=== PATIENT | female | born 1940 | race Caucasian/White ===

== ENCOUNTER → 2018-06-23 | Outpatient (CLI) | payer OTHER ==
[~2018-06-23] VITALS: Ht 160 cm; Wt 60.3 kg
[~2018-06-23] MED LIST: ACETAMINOPHEN-1 EAC1 PO; ADVAIR 250-501 EACH INH; AMLODIPINE BESYL5 MG PO; BYSTOLIC10 MG PO; CALCIUM ACETAT667 M2 PO; GABAPENTIN 100100 MG PO; HYDROCHLOROTHIA25 M2 PO; IRBESARTAN300 MG PO; LISINOPRIL10 MG PO; LIVALO4 MG PO; MEDROLDOSEPACK PO; MULTIVITAMINS1 EAC7 PO; PRAVASTATIN SOD20 MG PO; PROAIR HFA8.5 GM INH; SINGULAIR 10 MG10 M1 PO
[2018-06-23 12:44] VITALS: BP 181/78
--- NOTE | 2018-06-23 12:45 | NUR ---
Pain Clinic Assessment: 1. History of Osteoarthritis: SPINE History of Rheumatoid Arthritis: Not Applicable 2. Height: 5 ft. 3 in. 160.0 cm. Weight: 133.0 lb. oz. 60.328 kg. Patient's BMI: 23.6 3. Vital Signs: BP: 181/78 Pulse: 98 Resp: 18 Temp: 02 Sat: 93 ECG Mon: 4. Pain Intensity: 6-7 5. Fall Risk: Dizziness: Needs help standing or walking: Fallen in the last 3 months: Fall risk comments: 6. Patient on Blood Thinner: None 7. History of Hypertension: Y 8. Opioid Therapy greater than 6 weeks: N Opiate Contract Signed: 9. Risk Assessment Tool Provided: 10. Functional Assessment Tool: 11. Recreational Drug Use: Never Drug Type: Tobacco Use: Former Smoker Tobacco Type: Amount or Packs/day: How Many Years: Alcohol Use: Yes Frequency: Weekly Quant: 2
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
== END ==
LOC: PAIN 08:57
DX: M54.16 Radiculopathy, lumbar region (principal); I10 Essential (primary) hypertension; J45.909 Unspecified asthma, uncomplicated; C50.919 Malignant neoplasm of unspecified site of unspecified female breast; Z79.899 Other long term (current) drug therapy

== ENCOUNTER → 2018-12-09 | Outpatient (CLI) | payer OTHER | LOC: RAD 15:33 | DX: R07.9 Chest pain, unspecified (principal) ==

== ENCOUNTER → 2019-02-18 | Outpatient (CLI) | payer OTHER ==
[~2019-02-18] VITALS: Ht 160 cm; Wt 59.1 kg
[~2019-02-18] MED LIST changes: +LOPERAMIDE 2 MG2 M1 PO; +ZYRTEC10 M5 PO
[2019-02-18 14:07] VITALS: BP 138/64
--- NOTE | 2019-02-18 14:17 | NUR ---
Pain Clinic Assessment: 1. History of Osteoarthritis: SPINE History of Rheumatoid Arthritis: Not Applicable 2. Height: 5 ft. 3 in. 160.0 cm. Weight: 130.4 lb. oz. 59.149 kg. Patient's BMI: 23.1 3. Vital Signs: BP: 138/64 Pulse: 90 Resp: 18 Temp: 02 Sat: 92 ECG Mon: 4. Pain Intensity: 6 5. Fall Risk: Dizziness: N Needs help standing or walking: N Fallen in the last 3 months: Y Fall risk comments: 6. Patient on Blood Thinner: None 7. History of Hypertension: Y 8. Opioid Therapy greater than 6 weeks: N Opiate Contract Signed: 9. Risk Assessment Tool Provided: 10. Functional Assessment Tool: 11. Recreational Drug Use: Never Drug Type: Tobacco Use: Former Smoker Tobacco Type: Amount or Packs/day: How Many Years: Alcohol Use: Yes Frequency: Weekly Quant: 1
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
== END ==
LOC: PAIN 13:34
DX: M47.16 Other spondylosis with myelopathy, lumbar region (principal); I10 Essential (primary) hypertension; J45.909 Unspecified asthma, uncomplicated; Z79.899 Other long term (current) drug therapy; Z88.8 Allergy status to other drugs, medicaments and biological substances; Z85.3 Personal history of malignant neoplasm of breast

== ENCOUNTER → 2019-03-11 | Outpatient (CLI) | payer OTHER ==
[~2019-03-11] VITALS: Ht 160 cm; Wt 58.7 kg
[2019-03-11 08:41] VITALS: BP 131/62
--- NOTE | 2019-03-11 08:55 | NUR ---
Pain Clinic Assessment: 1. History of Osteoarthritis: SPINE History of Rheumatoid Arthritis: Not Applicable 2. Height: 5 ft. 3 in. 160.0 cm. Weight: 129.4 lb. oz. 58.695 kg. Patient's BMI: 22.9 3. Vital Signs: BP: 131/62 Pulse: 86 Resp: 14 Temp: 02 Sat: 97 ECG Mon: 4. Pain Intensity: 6 5. Fall Risk: Dizziness: N Needs help standing or walking: N Fallen in the last 3 months: N Fall risk comments: 6. Patient on Blood Thinner: None 7. History of Hypertension: Y 8. Opioid Therapy greater than 6 weeks: N Opiate Contract Signed: 9. Risk Assessment Tool Provided: 10. Functional Assessment Tool: 11. Recreational Drug Use: Never Drug Type: Tobacco Use: Former Smoker Tobacco Type: Amount or Packs/day: How Many Years: Alcohol Use: Yes Frequency: Quant:
== END | disposition home or self-care (01) ==
LOC: PAIN 06:48
DX: M54.16 Radiculopathy, lumbar region (principal); G89.29 Other chronic pain; Z87.891 Personal history of nicotine dependence; Z88.8 Allergy status to other drugs, medicaments and biological substances; Z79.899 Other long term (current) drug therapy; Z98.890 Other specified postprocedural states

== ENCOUNTER → 2019-12-12 | Outpatient (CLI) | payer OTHER | LOC: SJCVCIMAG 07:33 | PROVIDERS: ATTEND Internal Medicine Cardiovascular Disease | DX: R94.31 Abnormal electrocardiogram [ECG] [EKG] (principal); I08.1 Rheumatic disorders of both mitral and tricuspid valves; I25.10 Atherosclerotic heart disease of native coronary artery without angina pectoris; I10 Essential (primary) hypertension; J44.9 Chronic obstructive pulmonary disease, unspecified; Z79.899 Other long term (current) drug therapy; Z87.891 Personal history of nicotine dependence ==

== ENCOUNTER → 2020-03-02 | Outpatient (CLI) | payer OTHER ==
[~2020-03-02] VITALS: Ht 160 cm; Wt 57.2 kg
[~2020-03-02] MED LIST changes: +SPIRIVA INH; +TRAMADOL 50 MG50 MG PO
[2020-03-02 13:36] VITALS: BP 142/57
--- NOTE | 2020-03-02 13:40 | NUR ---
Pain Clinic Assessment: 1. History of Osteoarthritis: SPINE History of Rheumatoid Arthritis: Not Applicable 2. Height: 5 ft. 3 in. 160.0 cm. Weight: 126.0 lb. oz. 57.153 kg. Patient's BMI: 22.3 3. Vital Signs: BP: 142/57 Pulse: 96 Resp: 16 Temp: 02 Sat: 96 ECG Mon: 4. Pain Intensity: 8 5. Fall Risk: Dizziness: N Needs help standing or walking: N Fallen in the last 3 months: N Fall risk comments: 6. Patient on Blood Thinner: None 7. History of Hypertension: Y 8. Opioid Therapy greater than 6 weeks: N Opiate Contract Signed: 9. Risk Assessment Tool Provided: 1-LOW 10. Functional Assessment Tool: 59/70 11. Recreational Drug Use: Never Drug Type: Tobacco Use: Former Smoker Tobacco Type: Amount or Packs/day: How Many Years: Alcohol Use: Yes Frequency: Quant:
--- NOTE | 2020-03-16 08:22 | HPC ---
[facility] [place] [address] [place] [address] PAIN MANAGEMENT CONSULTATION Name: JOSÉ GIL [facility] [id number] Admission: 03/02/20 Attend Phys: Ema Oropeza MD Discharge: Date of : 41 Report #: [id number] THIS REPORT FOR: cc: Sree Parikh MD,Sree Oropeza,Ema Thomas MD ~ CC: Ema Parikh DATE OF SERVICE: 03/02/2020 CHIEF COMPLAINT: Pain in the left leg and down to the level of the knee. HISTORY: The patient is a 79-year-old female who has been referred to the pain clinic for evaluation. . She was moving a mattress about a week ago. She then noted pain and discomfort in the lower portion of her back. It radiates down into her left leg. She notes that standing, bending, and other activities can be more problematic. Sitting is uncomfortable. The patient has used tramadol. She did not find this very effective. It is difficult for her to get out of bed. She denies any bowel or bladder dysfunction. The patient also states that she fell about a month ago. She is unable to take nonsteroidal anti-inflammatory medications. She has also tried gabapentin. ALLERGIES: DEMEROL CAUSES ITCHING, ASPIRIN, GI UPSET AND OTHER SIDE EFFECTS. CURRENT MEDICATIONS: Imodium 2 mg b.i.d., Zyrtec 10 mg, albuterol inhaler, Advair Diskus 250/50, irbesartan 300 mg, hydrochlorothiazide 25 mg 1-1/2 tablet daily, gabapentin 100 mg t.i.d., calcium, multivitamins, Bystolic 10 mg, and amlodipine. PAIN CLINIC ASSESSMENT AND PQRS: 1. The patient has some osteoarthritis of her spine. She is not being treated for rheumatoid arthritis. 2. Height 5 feet 3 inches, weight 160 pounds, BMI is 22. 3. Vital Signs: Blood pressure 142/57, heart rate 96, respiratory rate 16, room air saturation 96%. 4. Pain intensity 01/29. 5. Fall history: The patient has not fallen since we saw her last. 6. Blood thinner. The patient is not on a blood thinning medication. 7. Hypertension. The patient is being treated for hypertension. 8. Opioids greater than 6 weeks. The patient receives medication from her primary. 9. Risk assessment tool, low for opioid use. 10. Functional assessment tool 59/70. 11. Recreational drug use. The patient denies. 12. Tobacco: The patient is a former smoker. [address] [address] PAIN MANAGEMENT CONSULTATION Name: JOSÉ GIL Room #: REG [facility] Radha#: [id number] Admission: 03/02/20 Attend Phys: Ema Oropeza MD Discharge: Date of : 41 Report #: [id number] 13. Alcohol: The patient occasionally drinks alcoholic beverages. PHYSICAL EXAMINATION: GENERAL: The patient is a well-developed, well-nourished white female. Appears her stated age of 79 years. She is alert and oriented x 3. Her affect is appropriate. Speech is fluent. HEENT: Normocephalic, atraumatic. Extraocular eye muscles intact. The patient is wearing glasses. The patient has a facial covering. Hearing is within normal limits. NECK: Without adenopathy or JVD. LUNGS: Clear, without rhonchi or rales. ABDOMEN: Nontender. MUSCULOSKELETAL: Upper extremity muscle strength judged to be 5-/5 for the major muscle groups in the upper extremity. The patient without significant scoliosis, kyphosis or lordosis. The patient is experiencing pain that radiates down the low back area. Palpation in the low back area reveals two trigger points. We will consider injection of the trigger point. IMPRESSION: 1. Hypertension. 2. Seasonal allergies. 3. Asthma. 4. History of breast cancer. PROCEDURE: The patient elects to proceed. We discussed the risks and benefits of a trigger point injection. Possible complications of the procedure, which could include infection, worsening of pain, no improvement in pain, increased muscle soreness and the patient elects to proceed. PROCEDURE NOTE: The patient was placed in the sitting position. Her back was sterilely prepped with a Betadine solution. A 25-gauge needle was then used to identify the first trigger point in the posterior portion of her back near the posterior superior iliac spine and gluteus aaliyah. This reproduced her discomfort. A 25-gauge needle was then advanced into the trigger point. The patient acknowledged this was the area of discomfort. A total of 5 mL of 0.5% bupivacaine and 40 mg triamcinolone was injected. The contralateral side was treated in a like fashion. The second trigger point was identified. Using a 25-gauge needle. A total of 5 mL of 0.5% bupivacaine and 40 mg triamcinolone was injected into this area. The patient will follow up in the future as needed. [address] [address] PAIN MANAGEMENT CONSULTATION Name: JOSÉ GIL Room #: REG [facility] Garcia#: [id number] Admission: 03/02/20 Attend Phys: Ema Oropeza MD Discharge: Date of : 41 Report #: [id number] We would like to thank you for letting us participate in her care. We hope she continues to improve. <ELECTRONICALLY SIGNED> By: Ema Oropeza MD 03/16/20 0822 08 1812 Ema Oropeza MD /[facility]
== END | disposition home or self-care (01) ==
LOC: PAIN 06:54
PROVIDERS: ATTEND Anesthesiology Pain Medicine
DX: M79.18 Myalgia, other site (principal); I10 Essential (primary) hypertension; J45.909 Unspecified asthma, uncomplicated; Z98.890 Other specified postprocedural states; Z79.899 Other long term (current) drug therapy; Z85.3 Personal history of malignant neoplasm of breast; Z88.8 Allergy status to other drugs, medicaments and biological substances; Z87.891 Personal history of nicotine dependence

== ENCOUNTER → 2020-10-11 | Outpatient (CLI) | payer OTHER | LOC: SJCVC 11:03 | PROVIDERS: ATTEND Internal Medicine Cardiovascular Disease | DX: R94.31 Abnormal electrocardiogram [ECG] [EKG] (principal); I44.4 Left anterior fascicular block; I25.10 Atherosclerotic heart disease of native coronary artery without angina pectoris; I10 Essential (primary) hypertension; E78.2 Mixed hyperlipidemia; I34.0 Nonrheumatic mitral (valve) insufficiency; I34.1 Nonrheumatic mitral (valve) prolapse; J44.9 Chronic obstructive pulmonary disease, unspecified; Z88.8 Allergy status to other drugs, medicaments and biological substances; Z79.899 Other long term (current) drug therapy; Z87.891 Personal history of nicotine dependence; Z82.49 Family history of ischemic heart disease and other diseases of the circulatory system ==

== ENCOUNTER 2021-06-18 07:45 | Inpatient (IN) | payer OTHER ==
[~2021-06-18] VITALS: Ht 160 cm; Wt 56.7 kg
--- NOTE | ~2021-06-18 | EMS ---
[address] [address] EMS Patient Care Report Name: JOSÉ GIL Room #: PRE M.R.#: [id number] Admission: Attend Phys: Discharge: Date of : 42 Report #: [id number] THIS REPORT FOR: //name// Report Transmitted: 06/18/2021 07:22 EMS Care Summary [facility] MED-ACT Incident [id number] @ 06/18/2021 06:54 Incident Location [address] [place] [address] [place] [address] Patient JOSÉ GIL Female, 80 Years 1940 Patient Address [address] [place] [address] [place] [address] Patient History Chronic Obstructive Pulmonary Disease (COPD),Hypertension (HTN), Patient Allergies Aspirin, Patient Medications Pradaxa, Chief Complaint Fall, hit back of head Disposition Transported No Lights/[place] Reason Falls Transported To [facility] Narrative EMS arrives to find pt lying on the floor, pt states she has had multiple falls over the last few days, pt fell this morning trying to get off the toilet, pt also states she fell down the stairs yesterday. Pt has multiple bruises on her arms and legs. Pt denies neck pain but states she has mild head pain as she hit [address] [address] EMS Patient Care Report Name: JOSÉ GIL Room #: PRE Radha#: [id number] Admission: Attend Phys: Discharge: Date of : 42 Report #: [id number] her head on the floor. Pt denies use of blood thinners however her states she takes Pradaxa. Pt has two small hematomas on the back of her head, pt denies any loss of consciousness with any of her falls. Pt states she has a pinched nerve in her back that causes numbness and tingling in her legs. Pt reports being diagnosed with the pinched nerve a couple years ago but states she is currently having a flare up with it. Pt was assisted to her feet but was unable to walk by herself, pt assisted to the cot and secured via seatbelts. Once in the ambulance VS taken during transport to [facility], no change in pt condition during transport. Initial Vitals @07:23P: 97,BP: 124/79,SpO2: 99, @07:26P: 95,R: 16,BP: 127/75,Pain: 4/10,GCS: 15,SpO2: 99,Revised Trauma: 12, @07:16P: 103,R: 16,BP: 147/79,Pain: 4/10,GCS: 15,Temp: 98.6F,SpO2: 97,Revised Trauma: 12, Impression Injury of Head Procedures @07:19 ALS Assessment Response: UnchangedSucceeded Timeline 06:52,Call Received 06:52,Psap Call 06:54,Dispatched 06:56,En Route 07:03,On Scene 07:05,At Patient 07:14,Depart Scene 07:16,BP: 147/79 M,PULSE: 103,RR: 16 R,SPO2: 97 Ox,ETCO2: ,BG: ,PAIN: 4,GCS: 15, 07:19,ALS Assessment,Response: UnchangedSucceeded, 07:23,BP: 124/79 M,PULSE: 97,RR: R,SPO2: 99 Ox,ETCO2: ,BG: ,PAIN: ,GCS: , 07:26,BP: 127/75 M,PULSE: 95,RR: 16 R,SPO2: 99 Ox,ETCO2: ,BG: ,PAIN: 4,GCS: 15, 07:28,At Destination 07:48,Call Closed Disclaimer v1.1 Copyright 2020 [employer] This EMS Care Summary contains data elements from the applicable legal record (which may be displayed differently). It is designed to provide pertinent information for the following purposes: continuity of care, clinical quality, and state data reporting. The complete legal record is available to ED staff [address] [address] EMS Patient Care Report Name: JOSÉ GIL Room #: PRE M.R.#: [id number] Admission: Attend Phys: Discharge: Date of : 42 Report #: [id number] and administrators of the receiving hospital in [employer] Patient Tracker. All data is provided "as is."
--- NOTE | ~2021-06-18 | EKG ---
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1940 Requested By: Galindo Dong Order Number: [id number] MD: Measurements Intervals [place] Rate: 97 P: 74 MD: 192 QRS: -70 QRSD: 102 T: 83 QT: 361 QTc: 459 Interpretive Statements Sinus tachycardia Ventricular tachycardia ( 3 beat), unsustained Probable left atrial enlargement Left anterior fascicular block Low voltage, precordial leads Probable anteroseptal infarct, old No previous ECG available for comparison Electronically Signed On 06-18-2021 10:25:00 [employer] by Dov Cotto [email or web address] By: 0748 0748 [place], [place] /[facility]
--- NOTE | ~2021-06-18 | EMS ---
[address] [address] EMS Patient Care Report Name: JOSÉ GIL Room #: 170-21 ADM IN M.R.#: [id number] Admission: 06/18/21 Attend Phys: García Mclean MD Discharge: Date of : 42 Report #: [id number] THIS REPORT FOR: //name// Report Transmitted: 06/18/2021 17:[address] [facility] MED-ACT Incident [id number] @ 06/18/2021 06:54 Incident Location [address] [place] [address] [place] [address] Patient JOSÉ GIL Female, 80 Years 1940 Patient Address [address] [place] [address] [place] [address] Patient History Chronic Obstructive Pulmonary Disease (COPD),Hypertension (HTN), Patient Allergies Aspirin, Patient Medications Pradaxa, Chief Complaint Fall, hit back of head Disposition Transported No Lights/[place] Dispatch Reason Falls Transported To [facility] Narrative EMS arrives to find pt lying on the floor, pt states she has had multiple falls over the last few days, pt fell this morning trying to get off the toilet, pt also states she fell down the stairs yesterday. Pt has multiple bruises on her arms and legs. Pt denies neck pain but states she has mild head pain as she hit [facility] [address] [place] [address] EMS Patient Care Report Name: JOSÉ GIL Room #: [facility]21 ADM IN [facility]#: [id number] Admission: 06/18/21 Attend Phys: García Mclean MD Discharge: Date of : 42 Report #: [id number] her head on the floor. Pt denies use of blood thinners however her states she takes Pradaxa. Pt has two small hematomas on the back of her head, pt denies any loss of consciousness with any of her falls. Pt states she has a pinched nerve in her back that causes numbness and tingling in her legs. Pt reports being diagnosed with the pinched nerve a couple years ago but states she is currently having a flare up with it. Pt was assisted to her feet but was unable to walk by herself, pt assisted to the cot and secured via seatbelts. Once in the ambulance VS taken during transport to [facility], no change in pt condition during transport. Initial Vitals @07:23P: 97,BP: 124/79,SpO2: 99, @07:26P: 95,R: 16,BP: 127/75,Pain: 4/10,GCS: 15,SpO2: 99,Revised Trauma: 12, @07:16P: 103,R: 16,BP: 147/79,Pain: 4/10,GCS: 15,Temp: 98.6F,SpO2: 97,Revised Trauma: 12, Impression Injury of Head Procedures @07:19 ALS Assessment Response: UnchangedSucceeded Timeline 06:52,Call Received 06:52,Psap Call 06:54,Dispatched 06:56,En Route 07:03,On Scene 07:05,At Patient 07:14,Depart Scene 07:16,BP: 147/79 M,PULSE: 103,RR: 16 R,SPO2: 97 Ox,ETCO2: ,BG: ,PAIN: 4,GCS: 15, 07:19,ALS Assessment,Response: UnchangedSucceeded, 07:23,BP: 124/79 M,PULSE: 97,RR: R,SPO2: 99 Ox,ETCO2: ,BG: ,PAIN: ,GCS: , 07:26,BP: 127/75 M,PULSE: 95,RR: 16 R,SPO2: 99 Ox,ETCO2: ,BG: ,PAIN: 4,GCS: 15, 07:28,At Destination 07:48,Call Closed Disclaimer v1.1 Copyright 2020 [employer] This EMS Care Summary contains data elements from the applicable legal record (which may be displayed differently). It is designed to provide pertinent information for the following purposes: continuity of care, clinical quality, and state data reporting. The complete [place] [address] EMS Patient Care Report Name: JOSÉ GIL Louie Room #: 170-21 ADM IN M.R.#: [id number] Admission: 06/18/21 Attend Phys: García Mclean MD Discharge: Date of : 42 Report #: [id number] and administrators of the receiving hospital in [facility]'s Patient Tracker. All data is provided "as is."
[~2021-06-18 07:45] MED LIST changes: -AMLODIPINE BESYL5 MG PO; +NORVASC5 MG PO
[2021-06-18 07:47] VITALS: BP 138/78
[2021-06-18] MEDS ORDERED: NEURONTIN100 MG PO (07:52)
[2021-06-18] MEDS ORDERED: [UNRECOGNIZED DRUG - OTHER] PO (07:54)
[2021-06-18 08:28] LABS: ALBUMIN 3.6 g/dL (3.4-5.0); CALCIUM 9.1 mg/dL (8.5-10.1); CREATININE 0.5 mg/dL (0.6-1.0); POTASSIUM 3.3 mmol/L (3.5-5.1); TOTAL BILIRUBIN 1.2 mg/dL (0.2-1.0); TOTAL PROTEIN 6.8 g/dL (6.4-8.2)
[2021-06-18 08:55] LABS: ABSOLUTE NEUTROPHILS 11.8 thou/uL (1.4-8.2); BASOPHILS 0.3 % (0.0-2.0); EOSINOPHILS 0.5 % (0.0-3.0); HEMATOCRIT 31.2 % (37.0-47.0); HEMOGLOBIN 10.9 gm/dL (12.0-15.0); LYMPHOCYTES 2.1 % (24.0-44.0); MCHC 34.9 g/dL (28.0-37.0); MCV 94.8 fL (80.0-100.0); MONOCYTES 5.8 % (1.0-8.0); PLATELET COUNT 195 thou/uL (150-400); POLYS 91.3 % (36.0-66.0); RBC 3.29 mil/uL (4.20-5.00); RDW 11.8 % (10.5-14.5)
[2021-06-18 09:05] LABS: URINE BILIRUBIN NEGATIVE (Negative); URINE BLOOD TRACE (Negative); URINE CLARITY CLEAR; URINE COLOR YELLOW; URINE GLUCOSE-RANDOM* NEGATIVE (Negative); URINE KETONES 1+ (Negative); URINE LEUKOCYTES-REFLEX NEGATIVE (Negative); URINE NITRITE-REFLEX NEGATIVE (Negative); URINE PROTEIN (DIPSTICK) TRACE (Negative); URINE SPECIFIC GRAVITY 1.015 (1.005-1.035); URINE UROBILINOGEN 0.2 E.U./dl (0.2-1.0)
[2021-06-18 12:30] LABS: FOLIC ACID 46.4 ng/mL (8.6-58.9)
[2021-06-18 18:46] LABS: CALCIUM 8.6 mg/dL (8.5-10.1); CREATININE 0.5 mg/dL (0.6-1.0)
[2021-06-19 00:36] VITALS: BP 147/82
[2021-06-19 06:57] VITALS: BP 158/84
[2021-06-19 07:47] LABS: ABSOLUTE NEUTROPHILS 9.2 thou/uL (1.4-8.2); BASOPHILS 0.2 % (0.0-2.0); EOSINOPHILS 0.2 % (0.0-3.0); HEMATOCRIT 29.2 % (37.0-47.0); HEMOGLOBIN 10.1 gm/dL (12.0-15.0); LYMPHOCYTES 5.9 % (24.0-44.0); MCH 33.6 pg (26.0-34.0); MCHC 34.5 g/dL (28.0-37.0); MCV 97.3 fL (80.0-100.0); MONOCYTES 10.6 % (1.0-8.0); PLATELET COUNT 157 thou/uL (150-400); POLYS 83.1 % (36.0-66.0); RDW 12.1 % (10.5-14.5)
[2021-06-19 08:13] LABS: ALBUMIN 2.9 g/dL (3.4-5.0); CALCIUM 8.3 mg/dL (8.5-10.1); CREATININE 0.8 mg/dL (0.6-1.0); TOTAL BILIRUBIN 1.1 mg/dL (0.2-1.0); TOTAL PROTEIN 5.6 g/dL (6.4-8.2)
[2021-06-19 08:29] LABS: MAGNESIUM 0.9 mg/dL (1.8-2.4)
[2021-06-19 15:11] VITALS: BP 126/108
[2021-06-19 15:33] VITALS: BP 126/108
[2021-06-19 16:00] VITALS: BP 152/63
--- NOTE | 2021-06-19 18:30 | NUR ---
PT RECEIVED FROM THE ER AT 1545 ALERT AND IN NO ACUTE DISTRESS. PT NOT HAVING ANY PAIN EXCEPT WHEN REPOSITIONED IN BED. LIDODERM PATCH HELPING W/ FRACTURED RIBS. USING O2 2L NC W/ SAT 93%. EATING SM AMTS. KEEPING ON BEDREST UNTIL EVALUATED PER PHYSICAL THERAPY. CONSULT FOR DR. RICO ON L2 FRACTURE. DTR AT BEDSIDE.
[2021-06-19 19:34] VITALS: BP 151/56
--- NOTE | 2021-06-20 06:25 | NUR ---
patient aox3 makes needs known. patient had black spit on napkin, lip are black in color possible gi bleed called fnp no new order. patient on 2l of oxygen no soa or distress noted. fall precaution in place. patient in bed asleep at this time breathing regular and unlaboured.
[2021-06-20 06:33] LABS: HEMATOCRIT 26.5 % (37.0-47.0); HEMOGLOBIN 9.4 gm/dL (12.0-15.0); MCH 34.1 pg (26.0-34.0); MCHC 35.5 g/dL (28.0-37.0); MCV 96.2 fL (80.0-100.0); RBC 2.75 mil/uL (4.20-5.00); RDW 12.1 % (10.5-14.5); WBC 10.1 thou/uL (4.0-11.0)
[2021-06-20 07:06] LABS: ALBUMIN 2.7 g/dL (3.4-5.0); CALCIUM 8.3 mg/dL (8.5-10.1); CREATININE 0.7 mg/dL (0.6-1.0); POTASSIUM 3.7 mmol/L (3.5-5.1); TOTAL PROTEIN 5.9 g/dL (6.4-8.2)
[2021-06-20 07:40] VITALS: BP 140/49
--- NOTE | 2021-06-20 11:37 | NUR ---
Chart review. CM visited with her spouse yasemin at bedside, meme was taking a btx. Noted she on oxygen and not ever needed home o2 before. Had covid vaccine and booster. had her flu shoot as well. lives at home with Yasemin # [phone]. have 10 steps to basement, where her office is and she still works from home. 15 steps up to the bedroom. This her 1st time fall. No dme, no hh or rehab in the past. Agree on 5n consult. Will cont following as needed for dc needs.
[2021-06-20 11:39] LABS: INR 0.93; PROTIME 10.2 Seconds (10.5-12.1)
[2021-06-20 12:27] VITALS: BP 124/63
--- NOTE | 2021-06-20 15:21 | NUR ---
PT SITTING IN CHAIR FOR MOST OF DAY. A&0X4. LOOSE COUGH WITH BROWN SPUTUM, PATIENT CONCERNED ABOUT BROWN STAINING ON TONGUE. PT C/O ACID REFLUX, RELIEF WITH TUMS, USING IS AT BEDSIDE EVERY HOUR. LIDOCAIN PATCHES REPLACED AND HELPING WITH PAIN, PT REPORTS PAIN WITH REPOSITIONING, OTHERWISE RESTING QUIETLY.
[2021-06-20 15:57] VITALS: BP 148/75
[2021-06-20 19:54] VITALS: BP 115/60
[2021-06-20 20:20] LABS: HEMOGLOBIN 8.6 gm/dL (12.0-15.0); MCH 33.8 pg (26.0-34.0); MCHC 34.6 g/dL (28.0-37.0); MCV 97.7 fL (80.0-100.0); RBC 2.56 mil/uL (4.20-5.00); RDW 12.1 % (10.5-14.5); WBC 10.5 thou/uL (4.0-11.0)
--- NOTE | 2021-06-21 04:27 | NUR ---
PT IS A/O X4 AND IS UP WITH ASSISTANCE X2 DUE TO UNSTEADY GATE AND SAFETY WTIH LEFT RIB FX. PT APPEARS FATIGUED, PALE SKINNED AND SOA WITH EXERTION. CURRENTLY ON 2 LITERS NC. PRN BRTX GIVEN FOR COARSE LUNG SOUNDS. FALL PRECUATIONS IN PLACE, CALL LIGHT IS WITHIN REACH.
[2021-06-21 05:57] VITALS: BP 142/50
[2021-06-21 07:55] VITALS: BP 133/63
[2021-06-21 08:06] LABS: HEMATOCRIT 24.3 % (37.0-47.0); HEMOGLOBIN 8.4 gm/dL (12.0-15.0); MCH 33.5 pg (26.0-34.0); MCHC 34.5 g/dL (28.0-37.0); MCV 97.1 fL (80.0-100.0); RBC 2.5 mil/uL (4.20-5.00); WBC 8.3 thou/uL (4.0-11.0)
[2021-06-21 08:57] LABS: ALBUMIN 2.7 g/dL (3.4-5.0); CALCIUM 8.6 mg/dL (8.5-10.1); CREATININE 0.6 mg/dL (0.6-1.0); MAGNESIUM 2.1 mg/dL (1.8-2.4); POTASSIUM 3.7 mmol/L (3.5-5.1); TOTAL BILIRUBIN 0.6 mg/dL (0.2-1.0)
[2021-06-21 11:55] VITALS: BP 148/73
[2021-06-21 16:00] VITALS: BP 166/63
--- NOTE | 2021-06-21 18:39 | NUR ---
PT UP TO CHAIR MOST OF THE DAY, FAMILY AT BEDSIDE, REPORTS SHE IS FEELING BETTER. LOOSE COUGH BETTER COMPARED TO YESTERDAY PER PT. FALL PRECAUTIONS MAINTAINED AND ENCOURAGED. USING IS MULTIPLE TIMES PER DAY. SCDS PLACED.
[2021-06-21 19:56] VITALS: BP 135/49
--- NOTE | 2021-06-22 04:57 | NUR ---
PT IS A/O X4 AND IS UP WITH ASSISTANCE. REMAINS WITH 2 LITERS O2 PER NC. LUNGS SOUND COARSE. SCHEDULED BRTX GIVEN DIRECTED. MEDICATION GIVEN PER MAR. PT DENIES C/O PAIN OR DISCOMFORT. FALL PRECAUTIONS IN PLACE, CALL LIGHT IS WITHIN REACH.
[2021-06-22 05:16] VITALS: BP 150/69
[2021-06-22 05:36] LABS: HEMATOCRIT 21.4 % (37.0-47.0); HEMOGLOBIN 7.4 gm/dL (12.0-15.0); MCH 33.7 pg (26.0-34.0); MCHC 34.8 g/dL (28.0-37.0); MCV 96.7 fL (80.0-100.0); RBC 2.21 mil/uL (4.20-5.00); RDW 12.2 % (10.5-14.5); WBC 7.4 thou/uL (4.0-11.0)
[2021-06-22 05:58] LABS: ALBUMIN 2.6 g/dL (3.4-5.0); CALCIUM 8.7 mg/dL (8.5-10.1); CREATININE 0.6 mg/dL (0.6-1.0); MAGNESIUM 1.8 mg/dL (1.8-2.4); POTASSIUM 3.7 mmol/L (3.5-5.1); TOTAL BILIRUBIN 0.5 mg/dL (0.2-1.0); TOTAL PROTEIN 5.5 g/dL (6.4-8.2)
[2021-06-22 12:19] VITALS: BP 120/52
--- NOTE | 2021-06-22 13:48 | NUR ---
ASSUMED PT CARE THIS AM. PT IS ALERT & ORIENTED X4 BUT PAIUTE-SHOSHONE. PT HAS IV SITES ON MELISA AND RAC. PT HAS TELE MONITOR ON. PT IS ON 2L NC 02. PT HAS SCHEDULED BREATHING TREATMENT. PT FAMILY WAS AT THE BEDSIDE. PT IS ON THE CHAIR WATCHING TV WITH ALARM ON AND CALL LIGHT WITHIN REACH. WILL CONTINUE TO MONITOR PT. FOLLOW POC.
[2021-06-22] MEDS ORDERED: ZYRTEC10 M4 PO (14:37)
[2021-06-22 16:20] VITALS: BP 130/54
[2021-06-22 20:11] VITALS: BP 139/60
--- NOTE | 2021-06-23 04:10 | NUR ---
PT IS A/O X4 AND IS UP WITH ASSISTANCE. VSS. AFEBRILE. DENIES C/O PAIN OR DISCOMFORT. FALL PRECUATIONS IN PLACE, CALL LIGHT IS WITHIN REACH. PT IS PROGRESSING TOWARDS PLAN OF CARE DC GOALS.
[2021-06-23 07:00] VITALS: BP 121/60
[2021-06-23 07:06] LABS: HEMATOCRIT 25.2 % (37.0-47.0); HEMOGLOBIN 8.7 gm/dL (12.0-15.0); MCHC 34.5 g/dL (28.0-37.0); MCV 98.5 fL (80.0-100.0); RBC 2.56 mil/uL (4.20-5.00); RDW 12.3 % (10.5-14.5); WBC 8.7 thou/uL (4.0-11.0)
[2021-06-23 07:21] LABS: CALCIUM 8.6 mg/dL (8.5-10.1); CREATININE 0.6 mg/dL (0.6-1.0)
[2021-06-23 07:38] LABS: POTASSIUM 2.7 mmol/L (3.5-5.1)
--- NOTE | 2021-06-23 11:33 | NUR ---
A/O X 4. 2 L O2 VIA NASAL CANNULA. IS @ BEDSIDE. BILATERAL COARSE LUNGS, ONE ASSIST WITH TRANSFERS. USES BEDSIDE COMMODE. 3 LARGE BMS THIS MORNING. RIGHT AC AND LEFT UPPER ARM PIC. NS INFUSING @ 100 MLS/HR VIA RIGHT AC. BILATERAL ARM, HAND, RIB BRUISES. LIDOCAINE PATCHS ON BACK. 2 SKIN TEARS RIGHT FOREARM. SR WITH BBB. CRITICAL POTASSIUM 2.7 REPLACED 40 MEQ BIB. DAUGHTER AT BEDSIDE.
[2021-06-23 15:48] VITALS: BP 117/60
[2021-06-23 19:34] VITALS: BP 123/62
--- NOTE | 2021-06-23 23:29 | NUR ---
ASSUMED CARE OF PT AT 1920. PT IS A&OX4. IS [place] WITH BILAT PATTERSON. IS ON 1L OF O2/NC. HAS COURSE LUNG SOUNDS WITH SOB. NON PRODUCTED COUGH NOTED. NO DISTRESS. DENIES CHEST PAIN. REPORTS PAIN IN LEFT RIBS & CHRONIC BACK PAIN THAT IS BEING MANAGED WITH ORAL PAIN MEDS & OTHER THERAPUETIC TECHNIQUES. HAS GENERALIZED BRUISING. IS UP WITH 1 ASSIST, GB, WALKER TO CHAIR & BSC. FALL PRECAUTIONS & HOURLY ROUNDING CONTINUED THIS SHIFT. LABS & VITALS REVIEWED. PT IS CURRENTLY IN BED. CALL LIGHT WITHIN REACH. WILL CONTINUE TO MONITOR.
[2021-06-24 04:11] VITALS: BP 156/76
[2021-06-24 05:55] LABS: HEMATOCRIT 24.8 % (37.0-47.0); HEMOGLOBIN 8.2 gm/dL (12.0-15.0); MCH 32.9 pg (26.0-34.0); MCHC 33.2 g/dL (28.0-37.0); MCV 98.9 fL (80.0-100.0); PLATELET COUNT 301 thou/uL (150-400); RDW 12.3 % (10.5-14.5); WBC 13.2 thou/uL (4.0-11.0)
[2021-06-24 06:25] LABS: CALCIUM 8.3 mg/dL (8.5-10.1); CREATININE 0.6 mg/dL (0.6-1.0); MAGNESIUM 1.8 mg/dL (1.8-2.4)
[2021-06-24 07:29] VITALS: BP 138/73
[2021-06-24 13:44] LABS: ABSOLUTE NEUTROPHILS 11.4 thou/uL (1.4-8.2); METAMYELOCYTES 2 %; MYELOCYTES 1 %
[2021-06-24 15:21] VITALS: BP 157/69
--- NOTE | 2021-06-24 18:00 | NUR ---
PT ASSESSED AT START OF SHIFT. STATES FEELS SOME BETTER. STILL W/ CONJESTED COUGH. VERY WEAK BUT ABLE TO GET UP W/ MIN ASSIST. SAT UP MUCH OF SHIFT. STARTED BOWEL PREP AT 1500 W/ WATERY BROWN STOOL OUT. TAKING CLEAR LIQUIDS AND NPO AFTER MID NOC FOR EGD/COLON IN AM.
[2021-06-25 01:51] VITALS: BP 125/79
[2021-06-25 06:27] LABS: ABSOLUTE NEUTROPHILS 13.3 thou/uL (1.4-8.2); BASOPHILS 0.1 % (0.0-2.0); HEMATOCRIT 25.5 % (37.0-47.0); HEMOGLOBIN 8.6 gm/dL (12.0-15.0); MCH 33.6 pg (26.0-34.0); MCHC 33.9 g/dL (28.0-37.0); MCV 99.2 fL (80.0-100.0); MONOCYTES 5.4 % (1.0-8.0); PLATELET COUNT 362 thou/uL (150-400); POLYS 88.5 % (36.0-66.0); RBC 2.57 mil/uL (4.20-5.00); RDW 12.3 % (10.5-14.5); WBC 15.1 thou/uL (4.0-11.0)
[2021-06-25 07:41] VITALS: BP 148/66
--- NOTE | 2021-06-25 07:43 | NUR ---
RECEIVED CARE OF THIS PATIENT AT 1900. PATIENT ALERT AND ORIENTED X4. UP TO BSC SEVERAL TIMES D/T BOWEL PREP. REMAINS NPO FOR PROCEDURES. PATIENT APREHENSIVE ABOUT PROCEDURES. ACCUCHECK WAS 109. NO COVERAGE NEEDED. HAS 2 PIV'S WITH FLUIDS INFUSING IN THE RAC. STOOL IS MOSTLY CLEAR WITH CHUNKS OF STOOL. SLEPT LITTLE THIS SHIFT.
--- NOTE | 2021-06-25 10:26 | NUR ---
ASSUMED PT CARE THIS AM. PT HAS IV SITES ON MELISA AND RAC RUNNING NS @100ML/HR.T PT HAS BEEN NPO. PT HAS TELE MONITOR ON AND RUNNING SINUS TACHY AND PVC. PT IS ON 1L NC O2. PT HAS SKIN TEAR ON R ARM. PT WILL HAVE EGD AND COLONOSCOPY TODAY. PT IS ACCUCHECK ACHS. WILL CONTINUE TO MONITOR PT. FOLLOW POC.
[2021-06-25 14:03] VITALS: BP 145/64
[2021-06-25] MEDS ORDERED: NORVASC5 MG PO (15:06)
[2021-06-25] MEDS ORDERED: IPRAT-ALBUT 0.5-3 ML INH (15:06)
[2021-06-25] MEDS ORDERED: PULMICORT0.5 MG/22 INH (15:09)
[2021-06-25] MEDS ORDERED: ENOXAPARIN40 MG/0.4 SUBQ (15:09)
[2021-06-25] MEDS ORDERED: PREDNISONE 10 M10 M1 PO (15:09)
[2021-06-25] MEDS ORDERED: PROTONIX40 M4 PO (15:10)
--- NOTE | 2021-06-25 15:31 | NUR ---
Met with patient and family at bedside. Discussed 5N they are agreeable to acute rehab and transfer today.
--- NOTE | 2021-06-28 12:10 | PATH ---
[facility] [address] [address] PATHOLOGY RPT PROCEDURE Name: VANDANA ODOM Room #: 436-P [facility] IN M.R.#: [id number] Admission: 06/18/21 Date of : 42 Discharge: 06/25/21 Report #: [id number] Path Case #: [id number] LCA Accession Number: [id number] . 01 Material submitted: . colon - TRANSVERSE COLON POLYP X2. Modifiers: transverse, X2 . 01 Clinical history: . COLONOSCOPY COLON POLYP . 02 Diagnosis: Transverse colon polyps x2, polypectomy: - Tubular adenoma x1. - Polypoid colonic mucosa without significant histopathologic abnormality x1. - Negative for high grade dysplasia or malignancy. . (ANK:mml; 06/27/2021) QL 06/27/2021 1056 Local . 02 Electronically signed: . Lainey Cyr MD, Pathologist NPI- [id number] . 01 Gross description: . The specimen is received in formalin, labeled "Vandana Odom, transverse colon polyp x2". Received are two segments of pale gutierrez tissue measuring 0.1 and 0.3 cm in maximum dimensions. The specimen is submitted entirely in cassette A1. (CAA; 06/26/2021) QAC/QAC 06/26/2021 1023 Local . 02 Pathologist provided ICD-10: D12.3 . 02 CPT . [id number] Specimen Comment: A courtesy copy of this report has been sent to [phone], [phone] Specimen Comment: [id number], Specimen Comment: Report sent to , DR MCKEON / DR BRAY Specimen Comment: A duplicate report has been generated due to demographic updates. Performed at: [address] [id number] [address] [place] [address] PATHOLOGY RPT PROCEDURE Name: VANDANA ODOM Room #: 436-P [facility] IN ..#: [id number] Admission: 06/18/21 Date of : 42 Discharge: 06/25/21 Report #: [id number] Path Case #: [id number] MD Javier Tomlin MD Phone: [phone] Performed at: [address] [id number] MD Lainey Cyr MD Phone: [phone]
== END 2021-06-25 17:15 | DRG 551 ==
LOC: ER 07:45 → EROBS 12:37 → 4S 12:37
PROVIDERS: Emergency Medicine; Hospitalist; Internal Medicine; Nurse Practitioner; ADMIT Internal Medicine; ATTEND Internal Medicine
PROC: 0DBL8ZZ Excision of Transverse Colon, Via Natural or Artificial Opening Endoscopic (ICD-10-PCS; principal; 2021-06-25)
PROC: 0DJ08ZZ Inspection of Upper Intestinal Tract, Via Natural or Artificial Opening Endoscopic (ICD-10-PCS; principal; 2021-06-25)
DX: S32.050A Wedge compression fracture of fifth lumbar vertebra, initial encounter for closed fracture (principal); J96.01 Acute respiratory failure with hypoxia; G93.41 Metabolic encephalopathy; K92.2 Gastrointestinal hemorrhage, unspecified; S32.501A Unspecified fracture of right pubis, initial encounter for closed fracture; S22.49XA Multiple fractures of ribs, unspecified side, initial encounter for closed fracture; E87.1 Hypo-osmolality and hyponatremia; D62 Acute posthemorrhagic anemia; J44.1 Chronic obstructive pulmonary disease with (acute) exacerbation; R29.6 Repeated falls; E87.6 Hypokalemia; R74.01 Elevation of levels of liver transaminase levels; D72.829 Elevated white blood cell count, unspecified; E83.42 Hypomagnesemia; I10 Essential (primary) hypertension; G62.9 Polyneuropathy, unspecified; D64.9 Anemia, unspecified; T50.2X5A Adverse effect of carbonic-anhydrase inhibitors, benzothiadiazides and other diuretics, initial encounter; S09.90XA Unspecified injury of head, initial encounter; R26.89 Other abnormalities of gait and mobility; M54.50 Low back pain, unspecified; K63.5 Polyp of colon; K44.9 Diaphragmatic hernia without obstruction or gangrene; M19.90 Unspecified osteoarthritis, unspecified site; Z87.891 Personal history of nicotine dependence; Z86.010 Personal history of colon polyps; Z90.13 Acquired absence of bilateral breasts and nipples; Z88.6 Allergy status to analgesic agent; Z88.8 Allergy status to other drugs, medicaments and biological substances; W18.39XA Other fall on same level, initial encounter; Y93.89 Activity, other specified; Y92.098 Other place in other non-institutional residence as the place of occurrence of the external cause; Y99.8 Other external cause status; Z20.822 Contact with and (suspected) exposure to COVID-19
CPT/HCPCS: 10100; 62110; 62900; 70005

== ENCOUNTER 2021-06-25 13:44 | Inpatient (IN) | payer OTHER ==
[~2021-06-25] VITALS: Ht 160 cm; Wt 60.5 kg
[~2021-06-25 13:44] MED LIST changes: +NEURONTIN100 MG PO; +ZYRTEC10 M4 PO; +[UNRECOGNIZED DRUG - OTHER] PO
[2021-06-25] MEDS ORDERED: IPRAT-ALBUT 0.5-3 ML INH (15:06)
[2021-06-25] MEDS ORDERED: NORVASC5 MG PO (15:06)
[2021-06-25] MEDS ORDERED: PULMICORT0.5 MG/22 INH (15:09)
[2021-06-25] MEDS ORDERED: ENOXAPARIN40 MG/0.4 SUBQ (15:09)
[2021-06-25] MEDS ORDERED: PREDNISONE 10 M10 M1 PO (15:09)
[2021-06-25] MEDS ORDERED: PROTONIX40 M4 PO (15:10)
[2021-06-25 17:30] VITALS: BP 116/46
[2021-06-25 20:00] VITALS: BP 139/64
--- NOTE | 2021-06-26 02:14 | NUR ---
assumed care approx 1900 evening 06/25. pt sitting up in recliner alert and oriented at change of shift. daughter at bedside. pt up to bsc at hs to void and pt requested bedpan to void this night. 02 at 2L per n/c. pt took hs meds with water tolerating well. pt encouraged to use IS and try to cough up loose phlegm. pt denies shortness of breath. resp tx as ordered. bed alarm on and call light in reach. will continue to monitor.
[2021-06-26 05:14] LABS: CREATININE 0.5 mg/dL (0.6-1.0)
[2021-06-26 05:18] LABS: HEMATOCRIT 22.7 % (37.0-47.0); HEMOGLOBIN 7.8 gm/dL (12.0-15.0); MCH 33.9 pg (26.0-34.0); MCHC 34.3 g/dL (28.0-37.0); MCV 98.8 fL (80.0-100.0); RBC 2.3 mil/uL (4.20-5.00); RDW 12.3 % (10.5-14.5); WBC 14.4 thou/uL (4.0-11.0)
[2021-06-26 05:23] LABS: POTASSIUM 2.3 mmol/L (3.5-5.1)
[2021-06-26 05:46] LABS: FOLIC ACID 19.3 ng/mL (8.6-58.9)
--- NOTE | 2021-06-26 09:40 | NUR ---
PT UP TO W/C THIS AM. PT USED BSC THIS AM WITH MINIMAL ASSIST. PT DOES NEED ASSISTANCE WITH STANDING THEN ABLE TO TRANSFER OVER TO W/C OR CHAIR. PT RECIEVED TYLENOL 325MG 2 TABS PO FOR PAIN. PT TOOK MEDS WITH WATER WITHOUT ANY ISSUES. PT ALSO RECIEVED TIMED K.
[2021-06-26 10:02] LABS: MAGNESIUM 1.1 mg/dL (1.8-2.4)
--- NOTE | 2021-06-26 13:22 | NUR ---
Chart review. 80 yr old female, came to the ED after falls at home . she did hit her head but denies LOC. she reports headache, has acute rib fracture, pubic rami fracture , anemia and noted some emesis with coffee ground color. Gi consulted, monitoring anemia. pulmonary consulted. Noted she is still requiring oxygen and she had not needed home oxygen before. Will need to see if she can be weaned off oxygen prior to dc home. She lives at home with her spouse Yasemin # [phone]. 1 step to enter and 15 steps inside home to bedrooms. No DME in the past. No hh or rehab in the past. Cm visited with Louie valentine & abran back 3, quiet and able to make her needs know. Will cont. following as needed for dc needs.
--- NOTE | 2021-06-26 14:33 | NUR ---
PT RECIEVED KDUR 40MEQ, PT NEEDED TO CHEW THE K A LITTLE BIT TO GET MED DOWN. PT HAS OXYGEN ON 2L. PT HAS SKIN TEAR TO RT FA THAT IS WRAPPED. PT DOES HAVE A COURSE COUGH, WITHOUT ANY PRODUCTION.
--- NOTE | 2021-06-26 16:21 | NUR ---
ADM TYLENOL 325MG 2 TABS FOR PAIN. PT DIDN'T WANT TRAMADOL DUE TO MED MAKING HER SLEEPY.
--- NOTE | 2021-06-26 17:39 | NUR ---
ADM KDUR 40MEQ LAST DOSE TODAY WITH DINNER, PT RECIEVED MAG 800MG PO X1 FOR LOW MAG LEVEL.
[2021-06-26 20:00] VITALS: BP 149/63
--- NOTE | 2021-06-27 06:17 | NUR ---
ASSUMED CARE AT 1930 OF 06/26. PATIENT IS A&OX4, AND HARD OF HEARING. REPORTS MILD PAIN IN RIBS AND PELVIC AREA, MANAGED WITH PRN ACETAMINOPHEN. MODERATE ASSIST OF 1 WITH PIVOT TRANSFER TO BS USING GB. MINIMAL ASSIST WITH ADLS AT . REMAINS ON 2L OF O2 VIA NC. IS USAGE ENCOURAGED. FALL PRECAUTIONS IN PLACE, CALL LIGHT WITHIN REACH. WILL CONTINUE TO MONITOR.
--- NOTE | 2021-06-27 13:05 | NUR ---
Team meeting, recommendation: cont. on 2L of oxygen per nasal cannula. Increased swelling in lower ext. new order for giulia blackwood. doppler bilat to check for dvt related to bilat lower ext swelling. Follow up with hospitalist. stat bmp and cbc ordered to recheck labs. Encourage IS. Re team, cont. therapy.
[2021-06-27 14:48] LABS: HEMATOCRIT 27.3 % (37.0-47.0); MCH 32.9 pg (26.0-34.0); MCHC 32.9 g/dL (28.0-37.0); MCV 99.8 fL (80.0-100.0); PLATELET COUNT 326 thou/uL (150-400); RBC 2.73 mil/uL (4.20-5.00); RDW 12.7 % (10.5-14.5); WBC 21.1 thou/uL (4.0-11.0)
[2021-06-27 15:47] LABS: CALCIUM 8.8 mg/dL (8.5-10.1); CREATININE 0.8 mg/dL (0.6-1.0); POTASSIUM 5.6 mmol/L (3.5-5.1)
[2021-06-27 16:11] LABS: ABSOLUTE NEUTROPHILS 19.8 thou/uL (1.4-8.2)
[2021-06-27 19:50] VITALS: BP 157/74
--- NOTE | 2021-06-28 04:43 | NUR ---
ASSUMED CARE AT 1930 OF 06/27. PATIENT IS A&OX4, REPORTS PAIN IN LEFT RIB AREA, PAIN MANAGED WITH PRN PAIN MEDICATION WITH SOME EFFECTIVINESS. MINIMAL ASSIST WITH TRANSFER AND AMBULATION, USING GB AND WALKER. FALL PRECAUTIONS IN PLACE, CALL LIGHT WITHIN REACH. WILL CONTINUE TO MONITOR.
[2021-06-28 05:25] LABS: MCH 33.1 pg (26.0-34.0); RBC 2.49 mil/uL (4.20-5.00)
[2021-06-28 05:27] LABS: HEMATOCRIT 24.6 % (37.0-47.0); HEMOGLOBIN 8.3 gm/dL (12.0-15.0); MCHC 33.5 g/dL (28.0-37.0); MCV 98.8 fL (80.0-100.0); PLATELET COUNT 268 thou/uL (150-400); RDW 12.5 % (10.5-14.5); WBC 18.8 thou/uL (4.0-11.0)
[2021-06-28 05:42] LABS: CALCIUM 8.6 mg/dL (8.5-10.1); CREATININE 0.9 mg/dL (0.6-1.0); MAGNESIUM 1.2 mg/dL (1.8-2.4); POTASSIUM 5.2 mmol/L (3.5-5.1)
[2021-06-28 06:12] LABS: ATYPICAL LYMPHS 1 %; HYPOCHROMASIA 2+; MACROCYTES 1+; POIKILOCYTOSIS 2+
[2021-06-28 08:00] VITALS: BP 145/66
--- NOTE | 2021-06-28 08:53 | NUR ---
ASSISTED PT TO BSC X1. PT HAS OXYGEN ON 2L NC. PT ASSISTED X1 TO BSC. PT WAS ABLE TO TRANSFER TO CHAIR FOR BREAKFAST. PT HAS BRUISES TO BACK FROM FALL, ALSO TO FORHEAD TO TOP OF HEAD. PT HAS COURSE BREATH SOUNDS TO DHAVAL. PT STILL HAS RATTLE SOUND TO BRONCHEAL TRACHEAL AREA. PT UNABLE TO BRING UP SPUTUM.
[2021-06-28 19:37] VITALS: BP 162/74
--- NOTE | 2021-06-29 02:08 | NUR ---
assumed care approx 1900 evening 06/28. pt sitting up in w/c in apt with daughter at her side. 02 at 2l per n/c. pt alert and oriented x4, appropriate and cooperative. pt given hs meds and pain meds as ordered. pt stayed up until approx 2230 and assist into bed. pt appears to be sleeping soundly. bed alarm on and call light in reach. will continue to monitor.
[2021-06-29 06:09] LABS: HEMATOCRIT 22.7 % (37.0-47.0); HEMOGLOBIN 7.6 gm/dL (12.0-15.0); MCHC 33.5 g/dL (28.0-37.0); MCV 98.5 fL (80.0-100.0); RBC 2.3 mil/uL (4.20-5.00); RDW 12.8 % (10.5-14.5); WBC 22.4 thou/uL (4.0-11.0)
[2021-06-29 06:21] LABS: CALCIUM 8.8 mg/dL (8.5-10.1); POTASSIUM 4.5 mmol/L (3.5-5.1)
[2021-06-29 08:00] VITALS: BP 130/60
--- NOTE | 2021-06-29 09:44 | NUR ---
PT SITTING UP IN W/C FOR BREAKFAST. PT HAS OXYGEN ON 2L NC. PT HAS BRUISING TO LEFT SIDE OF CHEST, LOWER BACK, AND THIGHS. PT VOIDS AND BM PER BATHROOM. PT TOOK MEDS THIS AM WITH WATER WITH NO ISSUES. PT STATED PAIN TO RIBS ARE 6 ON 1-10 SCALE.
--- NOTE | 2021-06-29 09:45 | NUR ---
ADM TRAMADOL 50MG FOR PAIN TO LEFT CHEST. PT SPUTUM NOT SOUNDING LOOSE IN THROAT TODAY.
--- NOTE | 2021-06-29 13:30 | NUR ---
DTR HERE AND WANTED TO KNOW ABOUT IF PT CAN HAVE HYDROCODONE INSTEAD OF TRAMADOL. SHE WANTS HER TO HAVE PAIN CONTROL, BUT ALSO BE ABLE TO STAY AWAKE FOR THERAPY. PT HAS LIDOCAINE PATCHES TO LOWER BACK AND LEFT SIDE. PT ALSO HAS TIMED TYLENOL AND AND ALSO TRAMADOL PRN.
--- NOTE | 2021-06-29 17:41 | NUR ---
ADM TRAMADOL 50MG FOR PAIN TO LEFT SIDE OF 7 ON 1-10 SCALE. PT SITTING IN LIVING ROOM, PT DIDN'T WANT TO EAT VERY MUCH, ENCOURAGED PT TO DRINK SUPPLEMENT.
[2021-06-29 19:04] VITALS: BP 123/45
--- NOTE | 2021-06-30 00:49 | NUR ---
assumed care approx 0 evening 06/28. pt sitting up in w/c in apt with daughter in room supportive of pt. 02 at 1L per n/c. resp tx as ordered. pt with clearer sounds to upper airway no longer audible just by standing beside pt. however pt with increased edema to feet. pt denies shortness of breath. pt up to bathroom via w/c and pt had bm in toilet this night. pt now back to bed appears to be sleeping soundly. pain med given. bed alarm on and call light in reach. will continue to monitor.
[2021-06-30 08:00] VITALS: BP 124/52
[2021-06-30 19:59] VITALS: BP 137/57
--- NOTE | 2021-07-01 01:46 | NUR ---
PT ALERT AND ORIENTED X 4. UP IN W/C ALL EVENING. TRANSFERRED TO BED AT HS WITH ASSIST X 1. 02 ON AT 1L PER NC CONT. PT C/O GENERALIZED PAIN. TRAMADOL GIVEN AT HS. BED ALARM ON FOR SAFETY. PT CHECKED ON HOURLY ROUNDS.
[2021-07-01 07:13] VITALS: BP 105/47
--- NOTE | 2021-07-01 13:01 | NUR ---
Cm notified by SANDER AND POLISHER, that she had change in medical condition and possible going to be sent back to acute hospital, unable to keep o2 saturation up. Getting lab work. Will cont following as needed.
[2021-07-01 13:18] LABS: BE(vivo) 15.6 mmol/L (-2 to +3); HCO3 39.5 mmol/L (22.0-26.0); PCO2 46.9 mmHg (35.0-45.0); PO2 106.9 mmHg (80.0-100.0); pH 7.543 (7.360-7.450); sO2 98.3 % (92.0-98.0)
[2021-07-01 13:18] LABS: MCH 32.1 pg (26.0-34.0); MCHC 32.1 g/dL (28.0-37.0); PLATELET COUNT 162 thou/uL (150-400); RBC 1.56 mil/uL (4.20-5.00); RDW 13.5 % (10.5-14.5); WBC 39.5 thou/uL (4.0-11.0)
[2021-07-01 13:26] LABS: HEMATOCRIT 15.6 % (37.0-47.0)
[2021-07-01 13:35] LABS: CALCIUM 8.5 mg/dL (8.5-10.1); CREATININE 1.6 mg/dL (0.6-1.0); POTASSIUM 3.9 mmol/L (3.5-5.1)
[2021-07-01 13:46] LABS: ABSOLUTE NEUTROPHILS 37.9 thou/uL (1.4-8.2)
[2021-07-01 13:47] LABS: ANISOCYTOSIS 1+; NUCLEATED RBCS 1 /100WBC
[2021-07-01 13:48] LABS: HYPOCHROMASIA 1+
[2021-07-01 15:36] VITALS: BP 137/45
== END 2021-07-01 13:40 | disposition short-term general hospital (02) | DRG 947 ==
PROVIDERS: Nurse Practitioner; Nurse Practitioner Family; ADMIT Physical Medicine & Rehabilitation; ATTEND Physical Medicine & Rehabilitation
DX: R53.81 Other malaise (principal); J96.01 Acute respiratory failure with hypoxia; S32.059A Unspecified fracture of fifth lumbar vertebra, initial encounter for closed fracture; S32.501A Unspecified fracture of right pubis, initial encounter for closed fracture; S22.42XA Multiple fractures of ribs, left side, initial encounter for closed fracture; S06.0X9A Concussion with loss of consciousness of unspecified duration, initial encounter; D62 Acute posthemorrhagic anemia; K92.2 Gastrointestinal hemorrhage, unspecified; J44.1 Chronic obstructive pulmonary disease with (acute) exacerbation; E87.1 Hypo-osmolality and hyponatremia; I10 Essential (primary) hypertension; E87.6 Hypokalemia; M51.36 Other intervertebral disc degeneration, lumbar region; G89.29 Other chronic pain; M54.9 Dorsalgia, unspecified; M54.16 Radiculopathy, lumbar region; G62.9 Polyneuropathy, unspecified; M19.90 Unspecified osteoarthritis, unspecified site; R26.89 Other abnormalities of gait and mobility; E83.42 Hypomagnesemia; R13.10 Dysphagia, unspecified; Z88.6 Allergy status to analgesic agent; Z88.8 Allergy status to other drugs, medicaments and biological substances; Z86.010 Personal history of colon polyps; Z87.891 Personal history of nicotine dependence; W18.39XA Other fall on same level, initial encounter; Y93.89 Activity, other specified; Y92.89 Other specified places as the place of occurrence of the external cause; Y99.8 Other external cause status
CPT/HCPCS: 10112

== ENCOUNTER 2021-07-01 13:30 | Inpatient (IN) | payer OTHER ==
[~2021-07-01] VITALS: Ht 160 cm; Wt 59.4 kg
[~2021-07-01 13:30] MED LIST changes: +ENOXAPARIN40 MG/0.4 SUBQ; +IPRAT-ALBUT 0.5-3 ML INH; +PREDNISONE 10 M10 M1 PO; +PROTONIX40 M4 PO; +PULMICORT0.5 MG/22 INH
[2021-07-01 14:00] VITALS: BP 137/56
[2021-07-01 15:37] VITALS: BP 123/52
[2021-07-01 16:28] VITALS: BP 121/52; BP 125/49
--- NOTE | 2021-07-01 19:35 | NUR ---
PT ARRIVED ON THE UNIT AT APPROXIMATELY 1400. PT WAS STARTED ON TELE MONITORING, NEW ADMIT VITALS OBTAINED, AND AN IV WAS PLACED. PT AND FAMILY WERE ORIENTED TO THE UNIT. PT APPROPRIATELY COMMUNICATED NEEDS TO STAFF.
[2021-07-01 19:52] VITALS: BP 125/52
[2021-07-01 22:58] LABS: HEMATOCRIT 21.2 % (37.0-47.0)
[2021-07-02 04:25] VITALS: BP 137/64
[2021-07-02 05:30] LABS: HEMATOCRIT 20.7 % (37.0-47.0); HEMOGLOBIN 6.8 gm/dL (12.0-15.0)
[2021-07-02 05:32] LABS: MCH 30.3 pg (26.0-34.0); PLATELET COUNT 163 thou/uL (150-400); RBC 2.26 mil/uL (4.20-5.00); RDW 20.5 % (10.5-14.5); WBC 27.5 thou/uL (4.0-11.0)
[2021-07-02 05:35] LABS: MCV 91.7 fL (80.0-100.0)
--- NOTE | 2021-07-02 05:44 | NUR ---
PATIENT AOX1 CONFUSED AND FORGETFUL.PATIENT INCONTIENT THIS SHIFT STEPHANIE CARE AND BARRIER CREAM APPLIED NEEDED. PATIENT HAS EDEMA ON BLE +2, PATIENT ENCOURAGED TO ELEVATE BLE. PATIENT ON 4L OF OXYGEN NO SOA OR DISTRESS NOTED THIS SHIFT. FALL PRECAUTION IN PLACE. PATIENT IN BED ASLEEP AT THIS TIME BREATHING REGULAR AND UNLABOURED.
[2021-07-02 06:03] LABS: CALCIUM 8.3 mg/dL (8.5-10.1); CREATININE 1.5 mg/dL (0.6-1.0); MAGNESIUM 2.1 mg/dL (1.8-2.4); POTASSIUM 3.6 mmol/L (3.5-5.1)
[2021-07-02 08:20] VITALS: BP 130/63
[2021-07-02 10:29] LABS: ABSOLUTE NEUTROPHILS 26.1 thou/uL (1.4-8.2); ANISOCYTOSIS 1+; LARGE PLATELETS OCCASIONAL; NUCLEATED RBCS 2 /100WBC; OVALOCYTES OCCASIONAL; POIKILOCYTOSIS SLIGHT; POLYCHROMASIA SLIGHT
[2021-07-02 11:00] VITALS: BP 124/49; BP 127/49
[2021-07-02 11:45] VITALS: BP 133/60
--- NOTE | 2021-07-02 15:33 | NUR ---
PATIENT ADMITTED FOR ANEMIA LEUKOCYTOSIS. PT TRANSFERRED TO 2N FROM 5N REHAB UNIT. CHART REVIEWED AND DISCUSSED WITH CARE TEAM. CM DID NOT MEET WITH PT THIS DAY. OFF FLOOR FOR PROCEDURE. AWAITING THERAPY RECOMMENDATIONS FOR DC PLANNING. PT/OT UNABLE TO EVAL R/T LOW HBG AND OFF UNIT. CM WILL CONTINUE TO FOLLOW.
[2021-07-02 15:40] VITALS: BP 154/71
--- NOTE | 2021-07-02 16:20 | NUR ---
Pt has been A&0x2, VS stabe and afebrile throughout shift. Pt HGN was 6.8 - one unit blood was transfused. transfusion ended at 1500. H&H ordered. Pt had capsule endoscopy done. Was able to resume light diet and liquids at 1344 and is tolerating well. No complaints of pain other than back discomfort. Pt has been passing liquid stools that are very dark green, almost black. No current concerns. Continue to monitor.
[2021-07-02 16:41] LABS: HEMATOCRIT 25.9 % (37.0-47.0); HEMOGLOBIN 8.7 gm/dL (12.0-15.0)
[2021-07-02 19:27] VITALS: BP 131/42
--- NOTE | 2021-07-03 01:16 | NUR ---
ASSUMED PT CARE AT 1900, DAUGHTER AT BEDSIDE, ORIENTEDX2, FORGETFUL. TYL GIVEN FOR BACK PAIN, MEDS GIVEN PER MAR, ASSESSMENTS CHARTED, SMALL LOOSE DARK BM, NO NEEDS AT THIS TIME, WILL CONTINUE TO MONITOR PER POC
[2021-07-03 02:23] LABS: HEMATOCRIT 20.9 % (37.0-47.0); HEMOGLOBIN 7.1 gm/dL (12.0-15.0); MCHC 33.9 g/dL (28.0-37.0); MCV 91.4 fL (80.0-100.0); RBC 2.29 mil/uL (4.20-5.00); WBC 18.9 thou/uL (4.0-11.0)
[2021-07-03 03:33] VITALS: BP 148/65
[2021-07-03 07:20] VITALS: BP 141/65
[2021-07-03 11:58] VITALS: BP 148/81
[2021-07-03 13:50] LABS: ABSOLUTE RETIC COUNT 0.1426 10^6/uL; OBSERVED RETIC COUNT 6.15 % (0.6-2.6)
[2021-07-03 14:13] LABS: % SATURATION 18 % (20-39); IRON 28 ug/dL (50-170); TIBC 157 ug/dL (250-450)
[2021-07-03 14:13] LABS: HEMATOCRIT 24.4 % (37.0-47.0); HEMOGLOBIN 7.9 gm/dL (12.0-15.0)
[2021-07-03 15:00] VITALS: BP 149/74
--- NOTE | 2021-07-03 16:31 | NUR ---
CM MET WITH PT THIS DAY TO DISCUSS DC PLANNING. PT DAUGHTER BRIAN AT PT SIDE. PT AGREEABLE AND REQUEST TO RETURN TO FOR REHAB. PT VOICED SHE WANTS TO GO THERE AND GET STRONGER SO SHE CAN BE STRONGER ENOUGH TO GO HOME. SHE REPORTS HER IS AT THE HOME INSTALLING GRAB BARS IN THE HOME SO ALL NECESSARY ASST DEVICE ARE IN PLACE WHENS SHE RETURNS HOME. THEY ARE AGREEABLE TO HOME HEALTH SERVICES ONCE PT IS DISCHARGED FROM REHAB. PT IS NOT MEDCIALLY STABLE TO DC AT THIS TIME. CASE DISCUSSED WITH TEAM AND THEY WILL FOLLOW. CM WILL CONTNUE TO FOLLOW.
--- NOTE | 2021-07-03 18:17 | NUR ---
Pt has been A&0x2, VS stable and afebrile. Daughter at bedside. GI communicated that capsule endoscopy was negative. Pt has had multiple loose, dark stools. Pt worked with PT and OT. Sat in chair for 3 hours. Diet advanced to soft. Tolerated well. No complaints of pain. No current concerns. Continue to monitor.
[2021-07-03 19:15] VITALS: BP 156/65
--- NOTE | 2021-07-04 02:15 | NUR ---
alert and orientedx2, forgetful, makes needs known, patrick/pacs/pvcs on tele, 1 small bowel movement, tyl given for back pain with relief, fluids infusing per orders, assessments as charted, meds given as per mar, no distress noted, will continue to monitor
[2021-07-04 03:11] VITALS: BP 153/75
[2021-07-04 07:15] VITALS: BP 146/54
[2021-07-04 10:46] LABS: HEMATOCRIT 25.8 % (37.0-47.0); HEMOGLOBIN 8.5 gm/dL (12.0-15.0); MCHC 32.9 g/dL (28.0-37.0); MCV 94.2 fL (80.0-100.0); RBC 2.74 mil/uL (4.20-5.00); RDW 18.1 % (10.5-14.5); WBC 19.6 thou/uL (4.0-11.0)
[2021-07-04 11:00] VITALS: BP 150/79
[2021-07-04 11:07] LABS: HAPTOGLOBIN 67 mg/dL (42-346); IgA 176 mg/dL (64-422); IgG 540 mg/dL (586-1602); IgM 111 mg/dL (26-217)
[2021-07-04 11:10] LABS: CREATININE 1.3 mg/dL (0.6-1.0); MAGNESIUM 1.9 mg/dL (1.8-2.4)
[2021-07-04 11:22] LABS: POTASSIUM 2.6 mmol/L (3.5-5.1)
--- NOTE | 2021-07-04 12:50 | NUR ---
SPOKE WITH DR. BEAVERS ABOUT CRITICAL K+ LEVEL. DR BEAVERS STATES HE WILL TAKE CARE OF IT. [facility].
[2021-07-04] MEDS ORDERED: VENOFER200 MG/10 IVPB (13:45)
[2021-07-04] MEDS ORDERED: LIDOCAINE1 EACH TRANSDERM (13:45)
[2021-07-04 16:00] VITALS: BP 161/75
--- NOTE | 2021-07-04 16:46 | NUR ---
ASSUMED CARE OF PATIENT AT 0700. PATIENT NOTED TO BE TACHY ON MONITOR BUT ASYSTOMATIC THIS MORNING. SHE IS TO TRANSFER TO 5N BUT WHILE WAITING REQUESTED A BREATHING TREATMENT. RT CAME AND STATED THAT SHE IS TIGHT IN HER LUNG SOUNDS AND IS HAVING DIFFICULTY WITH HER BREATHING. THIS RN PAGED THE MD TO LET THEM KNOW AND SEE IF WE STILL WANTED TO TRANSFER PATIENT. WAITING TO HEAR FROM THE MD ON SITUATION.
[2021-07-05 16:06] LABS: KAPPA FREE LIGHT CHAINS 27.9 mg/L (3.3-19.4); KAPPA/LAMBDA RATIO 1.13 (0.26-1.65); LAMBDA FREE LIGHT CHAINS 24.8 mg/L (5.7-26.3)
[2021-07-05 22:06] LABS: GLOBULIN TOTAL 2.5 g/dL (2.2-3.9); M-SPIKE Not Observed g/dL (Not Observed)
[2021-07-08 19:06] LABS: ANA INTERPRETATION Negative (())
== END 2021-07-04 19:12 | DRG 377 ==
LOC: 2N 13:30
PROVIDERS: Internal Medicine; Nurse Practitioner; ADMIT Internal Medicine; ATTEND Internal Medicine
PROC: 0DJ07ZZ Inspection of Upper Intestinal Tract, Via Natural or Artificial Opening (ICD-10-PCS; principal; 2021-07-01)
PROC: 30233N1 Transfusion of Nonautologous Red Blood Cells into Peripheral Vein, Percutaneous Approach (ICD-10-PCS; principal; 2021-07-01)
DX: K92.2 Gastrointestinal hemorrhage, unspecified (principal); J96.21 Acute and chronic respiratory failure with hypoxia; S32.059A Unspecified fracture of fifth lumbar vertebra, initial encounter for closed fracture; S06.0X9A Concussion with loss of consciousness of unspecified duration, initial encounter; S22.42XA Multiple fractures of ribs, left side, initial encounter for closed fracture; S32.591A Other specified fracture of right pubis, initial encounter for closed fracture; D62 Acute posthemorrhagic anemia; E87.1 Hypo-osmolality and hyponatremia; J44.1 Chronic obstructive pulmonary disease with (acute) exacerbation; N17.9 Acute kidney failure, unspecified; Z20.822 Contact with and (suspected) exposure to COVID-19; G62.9 Polyneuropathy, unspecified; R53.81 Other malaise; I10 Essential (primary) hypertension; E83.42 Hypomagnesemia; E87.6 Hypokalemia; M19.90 Unspecified osteoarthritis, unspecified site; R26.89 Other abnormalities of gait and mobility; R13.10 Dysphagia, unspecified; G89.29 Other chronic pain; M54.50 Low back pain, unspecified; K63.5 Polyp of colon; Z88.6 Allergy status to analgesic agent; Z88.8 Allergy status to other drugs, medicaments and biological substances; Z85.3 Personal history of malignant neoplasm of breast; Z90.13 Acquired absence of bilateral breasts and nipples; W18.39XA Other fall on same level, initial encounter; Y93.89 Activity, other specified; Y92.89 Other specified places as the place of occurrence of the external cause; Y99.8 Other external cause status
CPT/HCPCS: 10081